=== PATIENT | female | born 1960 | race Caucasian/White ===

== ENCOUNTER 2024-06-28 12:23 | Outpatient (REF) | payer OTHER, SELFPAY | END 2024-06-28 12:24 | disposition home or self-care (01) | LOC: HO.HOSX 12:23 | PROVIDERS: Visit Provider Orthopaedic Surgery | DX: Z13.89 Encounter for screening for other disorder (principal) ==

== ENCOUNTER 2024-06-29 12:48 | Outpatient (REF) | payer OTHER, SELFPAY | END 2024-06-29 12:49 | disposition home or self-care (01) | LOC: HO.HOSX 12:48 | PROVIDERS: Visit Provider Orthopaedic Surgery | DX: M25.512 Pain in left shoulder (principal) | CPT/HCPCS: 73030; 99202 ==

== ENCOUNTER 2024-06-29 13:49 | Outpatient (AMB) | payer OTHER, SELFPAY ==
--- NOTE | 2024-06-29 13:54 | A.OFFVIS_ITS ---
Vital Signs 06/29/24 13:56 Height 5 ft 7 in Weight 200 lb BMI 31.3 Intake Visit Reasons: Left shoulder pain and weakness Intake Note: Desiree is a 64 year old right-hand dominant female who presents with complaints of progressively worsening left shoulder pain and weakness. The patient states that she fell directly onto her left shoulder in October of 2023 when she sli pped while mopping her kitchen. Since that time her symptoms have gotten progressively worse. She has not been able to lift her left hand above shoulder height actively since her fall. She has done physical therapy exercises which aggravated her pain. She was seen at an urgent care center several months ago. Her symptoms have gotten worse since that time. She has tried Tylenol and anti-inflammatory medicines which gave her minimal relief. The patient states that she is not able to lift her left hand above shoulder height. Allergies acetaminophen [From PERCOCET] Allergy (Unknown, Verified 06/29/24 13:59) UNKNOWN oxycodone [From PERCOCET] Allergy (Unknown, Verified 06/29/24 13:59) UNKNOWN Penicillins [PCN] Allergy (Unknown, Verified 06/29/24 13:59) ANAPHYLAXIS Sulfa (Sulfonamide Antibiotics) [SULFA (SULFONAMIDE ANTIBIOTICS)] Allergy (Unknown, Verified 06/29/24 13:59) HIVES Physical Exam Vital Signs: BMI result Body Mass Index 31.3 Const Other: Well-nourished well-developed very friendly female awake alert and oriented x3 in no acute distress Extrem Other: Left shoulder examination shows decreased active and passive range motion when compared to her right shoulder, 3/5 strength with supraspinatus testing, positive impingement signs, no instability Results Reviewed Results Reviewed: X-rays of the patient's left shoulder show severe acromioclavicular joint narrowing, a type 2 acromion, no acute bony abnormalities Assessment & Plan Assessment & Plan (1) Left shoulder pain: Code(s): M25.512 - Pain in left shoulder Category: Medical Plan Desiree presents with progressively worsening left shoulder pain and weakness most likely due to a full-thickness rotator cuff tear. I will send the patient for an MRI of her left shoulder for further evaluation. I will see her back once the MRI is completed to discuss the findings and treatment options. She will continue with her [id number] exercises in the meantime to prevent stiffness. I spent 21 minutes in reviewing the patient's records and imaging studies, seeing the patient and documenting in the medical record. Orders: Orders XR shoulder LT min 2V Today M25.512 - Pain in left shoulder MR shoulder LT wo con Today M25.512 - Pain in left shoulder Coding Level of Care Code New Pt Level 3 (32382) Complex EM visit Add On G2211 Diagnoses Left shoulder pain M25.512
[2024-06-29 13:56] VITALS: BMI 31.3
== END 2024-06-29 14:11 | disposition home or self-care (01) ==
PROVIDERS: Visit Provider Orthopaedic Surgery
DX: M25.512 Pain in left shoulder (principal)
CPT/HCPCS: 99203; G2211

== ENCOUNTER 2024-09-29 14:42 | Outpatient (RCR) | payer OTHER, SELFPAY ==
--- NOTE | 2024-08-11 17:02 | MHC.PT.EP ---
[facility] [place] Office [place] Office [place] Office [address] Parveen Nguyễn [address] [phone] F: [phone] F: [phone] F: [phone] F: [phone] Physical Therapy Plan of Care Date of Evaluation: 08/11/24 Date of Surgery: Diagnosis: Pain in LEFT shoulder (Per MD) LEFT shoulder pain with RTC involvement; supraspinatus tear(?) (PT Dx) RS Assessment: Desiree is a 64 yo female who was referred by Dr. Dean Hahn MD of [facility] for Dx of pain in LEFT shoulder. PT diagnosis is LEFT shoulder pain with RTC involvement; questionable supraspinatus tear. Pt has hx of three falls in past year. 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 Pt will benefit from skilled PT to address impairments and meet their goals. Frequency and Duration: The patient will be seen 1x/week for 4 weeks Short Term Goals: 2 weeks Patient will be able to perform HEP to independently manage condition. Patient will be able to demonstrate proper sitting posture to be able to reduce pain in shoulder at rest. 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 Patient will increase shoulder abduction strength to 4/5 to be able to lift 10 lb to help with caregiver duties. Treatment Plan: Modalities to reduce pain, spasms and effusion. Manual therapy to restore motion and function. Therapeutic exercise to improve strength and flexibility. Neuromuscular re-education for posture and balance. Therapeutic activities to return to functional activities of daily living. Electronically signed by: Jesenia Vega, PT, DPT Please sign and return to therapist. Thank you for your referral.
--- NOTE | 2024-10-12 13:18 | MHC.PT.DC ---
[facility] [place] Office [place] Office [place] Office [address] Parveen Nguyễn [address] [phone] F: [phone] F: [phone] F: [phone] F: [phone] Physical Therapy Discharge Report Diagnosis: Pain in LEFT shoulder (Per MD) LEFT shoulder pain with RTC involvement; supraspinatus tear(?) (PT Dx) RS Date of Surgery: Date of Evaluation: 08/11/24 Date of Discharge: 10/12/24 Treatments to Date: 7 Cancellations to Date: No Shows to Date: Discharge Status: Independent with HEP Recommend MD Follow-up Discharge Summary: Desiree completed course of physical therapy. She showed some progress with ROM and strength but was still presenting with pain and impingement symptoms, limited ROM and weakness. She is a good candidate to receive an MRI of her shoulder to determine if there is RTC involvement, I have concerns of supraspinatus involvement due to presentation. She agrees to discharge plan at this time. Electronically signed by: Jesenia Vega, PT, DPT Please sign and return to therapist. Thank you for your referral.
== END 2024-10-12 13:18 | disposition home or self-care (01) ==
LOC: HO.PT 14:42
PROVIDERS: Visit Provider Orthopaedic Surgery
DX: M25.512 Pain in left shoulder (principal)
CPT/HCPCS: 97110; 97140; 97161; 97530; 97535

== ENCOUNTER 2024-11-15 14:07 | Outpatient (AMB) | payer OTHER, SELFPAY ==
--- NOTE | 2024-11-15 14:24 | A.OFFVIS_ITS ---
Vital Signs 11/15/24 14:27 Height 5 ft 7 in Weight 200 lb BMI 31.3 Intake Visit Reasons: Left shoulder pain and weakness Intake Note: Desiree is a 64 year old right-hand dominant female who presents with complaints of progressively worsening left shoulder pain and weakness. The patient states that she fell directly onto her left shoulder in October of 2023 when she sli pped while mopping her kitchen. Since that time her symptoms have gotten progressively worse. She has not been able to lift her left hand above shoulder height actively since her fall. She was seen at an urgent care center several months ago. Her symptoms have gotten worse since that time. She has tried Tylenol and anti-inflammatory medicines which gave her minimal relief. The patient states that she is not able to lift her left hand above shoulder height. After the patient's 1st visit with me I did order an MRI of her left shoulder to evaluate her for a rotator cuff tear. Her MRI was denied by her insurance company because she had not been to formal physical therapy. She has now gone to formal physical therapy which aggravated her pain. The therapy did not help with her weakness. She still can not lift her left hand to shoulder height. Desiree is a 64 year old right-hand dominant female who presents today for a left shoulder pain follow up. At her last visit a MRI of her shoulder was ordered however this was denied. Patient reports today she has completed formal PT and wishes to proceed with the MRI. Allergies acetaminophen [From PERCOCET] Allergy (Unknown, Verified 11/15/24 14:27) UNKNOWN oxycodone [From PERCOCET] Allergy (Unknown, Verified 11/15/24 14:27) UNKNOWN Penicillins [PCN] Allergy (Unknown, Verified 11/15/24 14:27) ANAPHYLAXIS Sulfa (Sulfonamide Antibiotics) [SULFA (SULFONAMIDE ANTIBIOTICS)] Allergy (Unknown, Verified 11/15/24 14:27) HIVES Medication List - Last Reconciled 11/15/24 by Dean Hahn MD No Known Home Meds Physical Exam Vital Signs: BMI result Body Mass Index 31.3 Const Other: Well-nourished well-developed very friendly female awake alert and oriented x3 in no acute distress Extrem Other: Left shoulder examination shows decreased range of motion when compared to her right shoulder, 2/5 strength with supraspinatus testing, positive impingement signs, no instability Results Reviewed Results Reviewed: X-rays of the patient's left shoulder show moderate to severe acromioclavicular joint narrowing, a type 2 acromion, no acute bony abnormalities Assessment & Plan Assessment & Plan (1) Rotator cuff insufficiency of left shoulder: Code(s): M25.312 - Other instability, left shoulder Category: Medical Plan Ms. Leeroy Gomez presents with progressively worsening left shoulder pain and weakness most likely due to a full-thickness rotator cuff tear. Once again I feel that it is a medical necessity for the patient to have an MRI of her left shoulder. Her 1st MRI order was denied by her insurance company because she had not completed formal physical therapy. The patient has now completed formal physical therapy which gave her no relief. I have reordered her left shoulder MRI. I will see her back after the MRI is completed to discuss the findings and treatment options. I spent 22 minutes in reviewing the patient's records and imaging studies, seeing the patient and documenting in the medical record. Orders: Orders MR shoulder LT wo con 11/15/24 M25.312 - Other instability, left shoulder Coding Level of Care Code Est Pt Level 3 (70070) Complex EM visit Add On G2211 Diagnoses Rotator cuff insufficiency of left shoulder M25.312
[2024-11-15 14:27] VITALS: BMI 31.3
== END 2024-11-15 15:00 | disposition home or self-care (01) ==
LOC: HO.HOS 14:07
PROVIDERS: Visit Provider Orthopaedic Surgery
DX: M25.312 Other instability, left shoulder (principal); W01.0XXA Fall on same level from slipping, tripping and stumbling without subsequent striking against object, initial encounter
CPT/HCPCS: 99213; G2211

== ENCOUNTER → 2024-11-15 14:07 | Outpatient (BNVA) | payer OTHER, SELFPAY | PROVIDERS: Visit Provider Orthopaedic Surgery | DX: M25.312 Other instability, left shoulder (principal) | CPT/HCPCS: 99212 ==

== ENCOUNTER 2024-11-18 18:34 | Outpatient (REF) | payer OTHER, SELFPAY | END 2024-11-18 18:35 | disposition home or self-care (01) | LOC: HO.MRI 18:34 | PROVIDERS: Visit Provider Orthopaedic Surgery | DX: M25.312 Other instability, left shoulder (principal) | CPT/HCPCS: 73221 ==

== ENCOUNTER → 2024-11-18 18:47 | Outpatient (BNV) | payer OTHER, SELFPAY | PROVIDERS: Visit Provider Radiology Diagnostic Radiology | DX: M75.112 Incomplete rotator cuff tear or rupture of left shoulder, not specified as traumatic (principal) | CPT/HCPCS: 73221 ==

== ENCOUNTER 2024-12-08 14:03 | Outpatient (AMB) | payer OTHER, SELFPAY ==
--- NOTE | 2024-12-08 14:10 | MHC.OFFVIS ---
Vital Signs 12/08/24 14:11 Height 5 ft 7 in Weight 200 lb BMI 31.3 Intake Visit Reasons: OV- Left shoulder MRI review Intake Note: Desiree is a 64 year old female who presents today for review of her left shoulder MRI results. The patient states that her left shoulder pain has improved somewhat since her last visit. She continues with her home stretching program. Allergies acetaminophen [From PERCOCET] Allergy (Unknown, Verified 12/08/24 14:12) UNKNOWN oxycodone [From PERCOCET] Allergy (Unknown, Verified 12/08/24 14:12) UNKNOWN Penicillins [PCN] Allergy (Unknown, Verified 12/08/24 14:12) ANAPHYLAXIS Sulfa (Sulfonamide Antibiotics) [SULFA (SULFONAMIDE ANTIBIOTICS)] Allergy (Unknown, Verified 12/08/24 14:12) HIVES Medication List - Last Reconciled 12/08/24 by Dean Hahn MD No Known Home Meds Physical Exam Vital Signs: BMI result Body Mass Index 31.3 Const Other: Well-nourished well-developed very friendly female awake alert and oriented x3 in no acute distress Extrem Other: Bilateral upper extremity examination shows good capillary refill, no skin lesions noted, normal sensation light touch Left shoulder examination shows improved range of motion when compared to her last visit, 4+ out of 5 strength with supraspinatus testing, positive impingement signs, tenderness over her acromioclavicular joint, no instability Results Reviewed Results Reviewed: MRI of the patient's left shoulder show severe acromioclavicular joint narrowing, a type 2 acromion, signal change within the supraspinatus tendon most likely due to adhesive capsulitis Assessment & Plan Assessment & Plan (1) Impingement syndrome of left shoulder: Code(s): M75.42 - Impingement syndrome of left shoulder Category: Medical Plan Desiree presents with left shoulder pain and stiffness due to impingement syndrome, acromioclavicular joint arthritis and adhesive capsulitis. I had a lengthy discussion with the patient regarding the treatment options. At this point the patient's symptoms are improving with her home stretching program. The do's and don'ts of lifting were discussed at length with the patient. She will follow up with me on an as-needed basis should her symptoms worsen in any way. Feel free to call me at any time should questions regarding her orthopedic management arise. I spent 21 minutes in reviewing the patient's records and imaging studies, seeing the patient and documenting in the medical record. Coding Level of Care Code Est Pt Level 3 (20858) Complex EM visit Add On G2211 Diagnoses Impingement syndrome of left shoulder M75.42
[2024-12-08 14:11] VITALS: BMI 31.3
== END 2024-12-08 14:34 | disposition home or self-care (01) ==
LOC: HO.HOS 14:04
PROVIDERS: Visit Provider Orthopaedic Surgery
DX: M75.42 Impingement syndrome of left shoulder (principal)
CPT/HCPCS: 99213; G2211

== ENCOUNTER → 2024-12-08 14:03 | Outpatient (BNVA) | payer OTHER, SELFPAY | PROVIDERS: Visit Provider Orthopaedic Surgery | DX: M75.42 Impingement syndrome of left shoulder (principal) | CPT/HCPCS: 99212 ==